=== PATIENT | female | born 1960 | race Caucasian/White ===

== ENCOUNTER 2018-07-25 02:27 | Emergency (ER) | payer MEDICARE, BC ==
[2016-10-16 12:45] VITALS: Wt 77.1 kg
--- NOTE | 2018-07-25 02:37 | ER Report ---
History and Physical Time Seen By MD: 02:37 HPI/ROS CHIEF COMPLAINT: Sudden onset of shortness breath HISTORY OF PRESENT ILLNESS: This is a 58 rolled female. Tonight she started becoming very short of breath. This started about 1-2 hours prior to coming to the hospital. She also has developed a cough tonight. Has chest tightness. No fevers. Nothing seems to make the breathing with the chest tightness worse or better. Found to be hypoxic in triage. Does have a history of DVT in the past but no history of pulmonary embolism. Also history of pneumonia with an abscess a few years ago treated successfully with antibiotics. As had one other episode of pneumonia treated by her outpatient provider within the last couple of years. She does smoke and has COPD. She wear oxygen intermittently at 2 liters by nasal canula at home. Denies any radiating pain to neck, back or arms. She has been a little nauseated, but not now. She and her also tell me that they have been under a lot of stress the last couple of days because someone poisoned their dog and wondered if the problem could be due to the increased stress. No sick contacts. Allergies: Coded Allergies: No Known Drug Allergies (Verified , 07/25/18) Home Meds Reported Medications Vitamin E Acetate (VITAMIN E) 400 Unit Capsule, 400 INTLU PO TID, CAPSULE 10/15/16 Diazepam (DIAZEPAM) 10 Mg Tablet, 0.5 TAB PO DAILY@1200, TAB 10/15/16 Diazepam (DIAZEPAM) 10 Mg Tablet, 10 MG PO BID, #15 TAB 10/15/16 Buspirone Hcl (BUSPIRONE HCL) 15 Mg Tablet, 1 TAB PO TID, #90 10/15/16 Paroxetine Hcl (PAROXETINE HCL) 40 Mg Tablet, 1 TAB PO HS, #30 10/15/16 Omeprazole (OMEPRAZOLE) 40 Mg Capsule.dr, 1 CAP PO QDAY, #30 10/15/16 Ferrous Sulfate (Ferrous Sulfate) 325 Mg Tab, 325 MG PO TIDAC, 0 Refills 02/21/10 Trazodone Hcl (Desyrel) 100 Mg Tablet, 100 MG PO HS, 0 Refills 02/21/10 Discontinued Scripts Levofloxacin 750 Mg Tab (LEVOFLOXACIN 750 MG TAB) 750 Mg Tablet, 750 MG PO DAILY for 7 Days, #7 TAB Prov:JOCELIN MIRANDA MD 10/19/16 Reviewed Nurses Notes: Yes Hx Smoking: Yes Smoking Status: Current: Every Day Smoker, Heavy Tobacco Smoker Exposure to Second Hand Smoke?: Yes Hx Substance Use Disorder: No Hx Alcohol Use: No (QUIT 15YRS AGO) Constitutional Physical Exam General Appearance: The patient is alert. Acute distress because of her shortness of breath. Eyes: Pupils are equal, round. No pallor, injection or icterus. ENT: Mucous membranes are moist. Normal oral mucosa. Posterior oropharynx is normal. Normal tympanic membranes and canals. Neck: Supple and non tender. Respiratory: Lungs diminished throughout, she does have some rhonchi throughout, but no rales. Some expiratory wheezes. There are no retractions or accessory muscle use. Cardiovascular: Regular rate and rhythm with occasional PVC on rhythm strip. No murmurs, gallops or rubs. Normal capillary refill. No edema. Gastrointestinal: Abdomen is soft and non tender. Normal active bowel sounds. Neurological: Alert and oriented x3. Skin: Warm and diaphoretic. No rashes. DIFFERENTIAL DIAGNOSIS: After history and physical exam, differential diagnosis was considered for shortness of breath including but not limited to pulmonary infectious process, COPD/asthma, pulmonary embolus and cardiac causes. Medical Decision Making Data Points Laboratory Hematology Test 07/25/18 02:38 07/25/18 02:51 07/25/18 05:40 Red Blood Count 5.34 M/uL (4.17-5.56) Mean Corpuscular Volume 91.5 fL (80.0-96.0) Mean Corpuscular Hemoglobin 30.7 pg (26.0-33.0) Mean Corpuscular Hemoglobin Concent 33.6 g/dL (32.0-36.0) Red Cell Distribution Width 13.5 % (11.5-14.5) Mean Platelet Volume 8.0 fL (7.2-11.1) Neutrophils (%) (Auto) 63.8 % (39.4-72.5) Lymphocytes (%) (Auto) 25.3 % (17.6-49.6) Monocytes (%) (Auto) 7.7 % (4.1-12.4) Eosinophils (%) (Auto) 2.5 % (0.4-6.7) Basophils (%) (Auto) 0.7 % (0.3-1.4) Nucleated RBC Relative Count (auto) 0.1 /100WBC Neutrophils # (Auto) 4.8 K/uL (2.0-7.4) Lymphocytes # (Auto) 1.9 K/uL (1.3-3.6) Monocytes # (Auto) 0.6 K/uL (0.3-1.0) Eosinophils # (Auto) 0.2 K/uL (0.0-0.5) Basophils # (Auto) 0.1 K/uL (0.0-0.1) Nucleated RBC Absolute Count (auto) 0.01 K/uL D-Dimer Quantitative (PE/DVT) 0.28 ug/ml (0-0.50) Sodium Level 139 mmol/L (137-145) Potassium Level 3.6 mmol/L (3.5-5.0) Chloride Level 99 mmol/L (98-107) Carbon Dioxide Level 34 mmol/L (22-31) Blood Urea Nitrogen 8 mg/dl (7-18) Creatinine 0.70 mg/dl (0.52-1.04) Glomerular Filtration Rate Calc > 60.0 Random Glucose 132 mg/dl (75-110) Lactate 1.5 mmol/L (0.7-2.1) Calcium Level 8.9 mg/dl (8.4-10.2) Total Bilirubin < 0.1 mg/dl (0.2-1.3) Aspartate Amino Transf (AST/SGOT) 18 U/L (0-35) Alanine Aminotransferase (ALT/SGPT) 26 U/L (0-56) Alkaline Phosphatase 94 U/L (0-126) Total Protein 6.9 g/dl (6.3-8.2) Albumin 3.9 g/dl (3.5-5.0) Influenza Virus Type A (PCR) Negative (NEGATIVE) Influenza Virus Type B (PCR) Negative (NEGATIVE) Troponin I < 0.012 ng/ml Chemistry Test 07/25/18 02:38 07/25/18 02:51 07/25/18 05:40 White Blood Count 7.5 k/uL (4.5-11.0) Red Blood Count 5.34 M/uL (4.17-5.56) Hemoglobin 16.4 g/dL (12.0-16.0) Hematocrit 48.8 % (34.0-47.0) Mean Corpuscular Volume 91.5 fL (80.0-96.0) Mean Corpuscular Hemoglobin 30.7 pg (26.0-33.0) Mean Corpuscular Hemoglobin Concent 33.6 g/dL (32.0-36.0) Red Cell Distribution Width 13.5 % (11.5-14.5) Platelet Count 331 K/uL (150-450) Mean Platelet Volume 8.0 fL (7.2-11.1) Neutrophils (%) (Auto) 63.8 % (39.4-72.5) Lymphocytes (%) (Auto) 25.3 % (17.6-49.6) Monocytes (%) (Auto) 7.7 % (4.1-12.4) Eosinophils (%) (Auto) 2.5 % (0.4-6.7) Basophils (%) (Auto) 0.7 % (0.3-1.4) Nucleated RBC Relative Count (auto) 0.1 /100WBC Neutrophils # (Auto) 4.8 K/uL (2.0-7.4) Lymphocytes # (Auto) 1.9 K/uL (1.3-3.6) Monocytes # (Auto) 0.6 K/uL (0.3-1.0) Eosinophils # (Auto) 0.2 K/uL (0.0-0.5) Basophils # (Auto) 0.1 K/uL (0.0-0.1) Nucleated RBC Absolute Count (auto) 0.01 K/uL D-Dimer Quantitative (PE/DVT) 0.28 ug/ml (0-0.50) Glomerular Filtration Rate Calc > 60.0 Lactate 1.5 mmol/L (0.7-2.1) Calcium Level 8.9 mg/dl (8.4-10.2) Total Bilirubin < 0.1 mg/dl (0.2-1.3) Aspartate Amino Transf (AST/SGOT) 18 U/L (0-35) Alanine Aminotransferase (ALT/SGPT) 26 U/L (0-56) Alkaline Phosphatase 94 U/L (0-126) Total Protein 6.9 g/dl (6.3-8.2) Albumin 3.9 g/dl (3.5-5.0) Influenza Virus Type A (PCR) Negative (NEGATIVE) Influenza Virus Type B (PCR) Negative (NEGATIVE) Troponin I < 0.012 ng/ml Coagulation Test 07/25/18 02:38 D-Dimer Quantitative (PE/DVT) 0.28 ug/ml Microbiology Microbiology Date/Time Source Procedure Growth Status 07/25/18 03:56 Blood Blood Culture - Final NO GROWTH AFTER 5 DAYS IN BOTH THE AE... Complete 07/25/18 02:50 Blood Blood Culture - Final NO GROWTH AFTER 5 DAYS IN BOTH THE AE... Complete EKG/Imaging EKG Interpretation 12 lead EKG: at 02:48 hours Rhythm: normal sinus rhythm, rate 81 [place]: normal QRS: normal ST segments: normal 12 lead EKG: At 05:20 hours Rhythm: Sinus tachycardia, rate 124 Otherwise unchanged Monitor Interpretation: Other (Initially normal sinus rhythm with rare PVCs. Later) Imaging CHEST: Indication: Cough and dyspnea. Technique: Frontal and lateral views were obtained. Comparison: 10/15/2016 Skeletal and soft tissue structures: There is mild degenerative disc disease in the thoracic spine, without significant change. No acute skeletal deformity is identified. Heart and mediastinum: Within normal limits. Lung hughes: Well-expanded. No acute process is clearly identified. There is minimal linear scarring at the right base. Pleural spaces: No evidence of effusion or pneumothorax. Impression: No acute process is clearly identified. Report Dictated By: Jason Hewitt MD at 07/25/2018 3:[address] CTA CHEST W & W/O CON HISTORY: Shortness of breath and cough. Hypoxia. COMPARISON: 10/15/2016 and studies dating to 10/11/2006. TECHNIQUE: Pulmonary embolus protocol - Thin-slice axial imaging of the chest was performed during maximal pulmonary arterial opacification with intravenous nonionic iodinated contrast. 3D coronal slab MIPs and 2D reconstructions in the coronal and sagittal planes were performed to aid in pulmonary embolus detection. Childbirth And Infant Care Teacher images have been stored on PACS. One of the following dose optimization techniques was utilized in the performance of this exam: Automated exposure control; adjustment of the mA and/or kV according to the patient's size; or use of an iterative reconstruction technique. Specific details can be referenced in the facility's radiology CT exam operational policy. CONTRAST: 75 mL of IV Isovue-370. FINDINGS: Pulmonary arteries: There is adequate opacification of the pulmonary arteries to the segmental branches. There are no filling defects in the visible pulmonary arteries. Pulmonary arteries are normal in caliber. Thoracic inlet: Normal. Aorta: No aneurysm or dissection. There is mild atherosclerosis of the aorta. Heart / Pericardium: The heart is normal. There is no ventricular septal deviation. There is no pericardial effusion. There is no coronary artery calcification. Mediastinum / Naty: 1.3 cm short axis diameter right pretracheal node (image 31 series 4), unchanged from October 2016, compatible with a benign process. There are other smaller mediastinal and hilar nodes. Lungs / Pleura: No pleural effusion. There are patchy alveolar opacities in the right upper and right middle lobes and in the right greater than left lower lobes. Opacities are somewhat confluent in the right lower lobe. No pneumothorax. There is bronchial thickening, greatest in the right lower lobe. Upper abdomen: There is a bilobed cyst in the left lobe of the liver, unchanged. There is a moderate size hiatal hernia. Musculoskeletal/vertebra/body wall: There is mild degenerative change of the spine. There are 1 mm anterolistheses of T1 on T2 and of T2 on T3. IMPRESSION: 1. No pulmonary embolism. 2. Bilateral infiltrates, right greater than left, and greatest in the right lower lobe. Findings are compatible with pneumonia. 3. Bronchial thickening, greatest in the right lower lobe, compatible with inflammation/infection. 4. Moderate size hiatal hernia. Report Dictated By: Pooja Shannon at 07/25/2018 4:40 AM ED Course/Re-evaluation Clinical Indication for ER IV: Hydration, IV Access ED Course With the initial evaluation, the concern was for infectious etiology combined with possible COPD exacerbation. She has oxygen saturations of 69% on room air on arrival, improved to 92% on a simple oxymask at 10 liters. IV started and blood work obtained including Lactate and blood cultures. DuoNeb treatment helped her breathing. Troponin and EKG included because of her risk factors. Troponin was undetectable. D-dimer negative. White count normal with H/H elevated likely due to smoking, normal platelets. Metabolic panel normal other than CO2 retention. She received a liter or normal saline. We were able to wean her oxygen down to 3-4 liters by nasal canula. Chest x-ray was done and did not show any edema, effusions, infiltrates or other acute disease. Influenza tests were negative. Because of the negative workup and significant hypoxia, the patient had a CTA chest, which was negative for any acute disease, specifically no pulmonary embolism or infiltrates. The thinking at this time was that this could be a viral upper respiratory infection with COPD exacerbation, although concern for the level of hypoxia we saw. After the CT scan, she started to have more chest tightness, and started complaining of some pain into her neck on the left side. She was becoming more short of breath again. Another DuoNeb treatment did not provide any improvement. We gave a dose of Solu-Medrol at this time as well. Her security monitor did show a lot of noise, but as we were monitoring her, she would have some short runs of distinct wide complex tachycardia. These were usually short, none more than about 20-30 seconds in length and then would go back to a sinus rhythm. She had a couple of these episodes while we were at the bedside, and she would have significantly more chest tightness and shortness of breath during these. Blood pressures seemed to be lower now, with systolics in the 90s and diastolics in the 50-70 range. At this time, we gave Aspirin 324mg oral dose, and a 150mg loading dose of Amiodarone and contacted the alligator trapper at [facility]. We attempted to catch the runs of ventricular tachycardia on a 12-lead EKG but were unsuccessful but were able to print out rhythm strips showing this arrhythmia. I spoke with Dr. Truong, the hospitalist at [facility], and Dr. Moore, the alligator trapper at [facility]. They accepted the patient for transport there. We are starting a 1mg/min Amiodarone drip to follow the 150mg loading dose. I have spoken to the patient and her several times regarding our concerns, explaining the dangers surrounding the heart arrhythmias we have been seeing and the medications we are using as well as need for further cardiology evaluation. With the addition of the Amiodarone drip, we are no longer seeing the wide complex tachycardia, she is having less shortness of breath and chest pain. Decision to Disposition Date: Jul 25, 2018 Decision to Disposition Time: 05:55 Transfer Facility Patient was transferred to [facility] [place] ambulance. The transfer was emergent, and was required because the capabilities of the receiving hospital. Consent for transfer was obtained from the patient. See EMTALA for transfer orders. Depart Departure Latest Vital Signs Impression: Primary Impression: Ventricular tachycardia Additional Impressions: Chest pain Hypoxia Condition: Condition Unchanged Disposition: XFER TO [facility] Problem Qualifiers Additional Impressions: Chest pain Chest pain type: unspecified Qualified Codes: R07.9 - Chest pain, unspecified PRETTY DEL REAL MD Jul 25, 2018 02:37
[2018-07-25] MEDS ORDERED: ALBUTEROL/IPRATROPIUM 3 ML NEB NEB ONE ×2 (02:55→04:35)
[2018-07-25 02:58] LABS: PLATELET COUNT, AUTOMATED 331 K/uL (150-450)
[2018-07-25] MEDS ORDERED: NS(*) 0.9% 1000 ML BAG 1,000 ML IV ONE ×2 (03:00→05:50)
--- NOTE | 2018-07-25 03:09 | EKG ---
FACILITY: [facility] [place] PATIENT NAME: TRISTIN ROJAS : [id number] MR: [id number] V: [id number] EXAM DATE: ORDERING PHYSICIAN: PRETTY DEL REAL TECHNOLOGIST: ROLAND Test Reason : CHEST PAIN Blood Pressure : / mmHG Vent. Rate : 081 BPM Atrial Rate : 081 BPM P-R Int : 148 ms QRS Dur : 080 ms QT Int : 384 ms P-R-T Axes : 056 078 055 degrees QTc Int : 446 ms Sinus rhythm Decreased R wave progression anterior leads Artifact in several leads - repeat if needed When compared with ECG of 15-OCT-2016 10:30, No significant change was found Confirmed by SAMY MIRANDA ([id number]) on 07/25/2018 5:32:52 AM Referred By: Confirmed By:SAMY MIRANDA
--- NOTE | 2018-07-25 03:39 | RADIOLOGY IMAGING REPORT ---
FACILITY: [facility] PATIENT NAME: Alize Carlson : 1960 MR: [id number] V: [id number] EXAM DATE: ORDERING PHYSICIAN: PRETTY DEL REAL TECHNOLOGIST: Location: [facility] [place] Patient: Alize Carlson : 1960 Visit/Account:[id number] Date of Sevice: 07/25/2018 CHEST: Indication: Cough and dyspnea. Technique: Frontal and lateral views were obtained. Comparison: 10/15/2016 Skeletal and soft tissue structures: There is mild degenerative disc disease in the thoracic spine, w ithout significant change. No acute skeletal deformity is identified. Heart and mediastinum: Within normal limits. Lung hughes: Well-expanded. No acute process is clearly identified. There is minimal linear scarring at the right base. Pleural spaces: No evidence of effusion or pneumothorax. Impression: No acute process is clearly identified. Report Dictated By: Jason Hewitt MD at 07/25/2018 3:31 AM Report E-Signed By: Jason Hewitt MD at 07/25/2018 3:34 AM WSN:[id number]
[2018-07-25] MEDS ORDERED: NS(*) 0.9% 50 ML BAG 50 ML ONE (04:05)
[2018-07-25] MEDS ORDERED: IOPAMIDOL 76% 150 ML INFUS BTL 150 ML ONE (04:05)
[2018-07-25] MEDS ORDERED: methylPREDNIS SUCC 125 MG/2ML IVP ONE (04:35)
--- NOTE | 2018-07-25 04:56 | RADIOLOGY IMAGING REPORT ---
FACILITY: [facility] PATIENT NAME: Alize Carlson : 1960 MR: [id number] V: [id number] EXAM DATE: ORDERING PHYSICIAN: PRETTY DEL REAL TECHNOLOGIST: Location: [facility] [place] Patient: Alize Carlson : 1960 Visit/Account:[id number] Date of Sevice: 07/25/2018 CT CTA CHEST W & W/O CON HISTORY: Shortness of breath and cough. Hypoxia. COMPARISON: 10/15/2016 and studies dating to 10/11/2006. TECHNIQUE: Pulmonary embolus protocol - Thin-slice axial imaging of the chest was performed during ma ximal pulmonary arterial opacification with intravenous nonionic iodinated contrast. 3D coronal slab MIPs and 2D reconstructions in the coronal and sagittal planes were performed to aid in pulmonary emb olus detection. Family Support Specialist images have been stored on PACS. One of the following dose optimization techniques was utilized in the performance of this exam: Autom ated exposure control; adjustment of the mA and/or kV according to the patient's size; or use of an i terative reconstruction technique. Specific details can be referenced in the facility's radiology CT exam operational policy. CONTRAST: 75 mL of IV Isovue-370. FINDINGS: Pulmonary arteries: There is adequate opacification of the pulmonary arteries to the segmental branch es. There are no filling defects in the visible pulmonary arteries. Pulmonary arteries are normal in caliber. Thoracic inlet: Normal. Aorta: No aneurysm or dissection. There is mild atherosclerosis of the aorta. Heart / Pericardium: The heart is normal. There is no ventricular septal deviation. There is no peric ardial effusion. There is no coronary artery calcification. Mediastinum / Naty: 1.3 cm short axis diameter right pretracheal node (image 31 series 4), unchanged from October 2016, compatible with a benign process. There are other smaller mediastinal and hilar nodes . Lungs / Pleura: No pleural effusion. There are patchy alveolar opacities in the right upper and right middle lobes and in the right greater than left lower lobes. Opacities are somewhat confluent in the right lower lobe. No pneumothorax. There is bronchial thickening, greatest in the right lower lobe. Upper abdomen: There is a bilobed cyst in the left lobe of the liver, unchanged. There is a moderate size hiatal hernia. Musculoskeletal/vertebra/body wall: There is mild degenerative change of the spine. There are 1 mm an terolistheses of T1 on T2 and of T2 on T3. IMPRESSION: 1. No pulmonary embolism. 2. Bilateral infiltrates, right greater than left, and greatest in the right lower lobe. Findings are compatible with pneumonia. 3. Bronchial thickening, greatest in the right lower lobe, compatible with inflammation/infection. 4. Moderate size hiatal hernia. Report Dictated By: Pooja Shannon at 07/25/2018 4:40 AM Report E-Signed By: Pooja Shannon at 07/25/2018 4:51 AM WSN:[id number]
[2018-07-25] MEDS ORDERED: LORazepam 2 MG/ML VIAL IVP ONE (05:05)
[2018-07-25] MEDS ORDERED: ASPIRIN 81 MG CHEW PO ONE (05:10)
[2018-07-25] MEDS ORDERED: ONDANSETRON 4 MG/2 ML VIAL IVP ONE (05:10)
[2018-07-25] MEDS ORDERED: AMIODARONE(*) 150 MG/3 ML INJ 150 MG in DEXTROSE 5%(*) 100 ML BAG 100 ML IVPB ONE (05:15)
[2018-07-25] MEDS ORDERED: AMIODARONE 150 MG/3 ML INJ ONE (05:21)
[2018-07-25] MEDS ORDERED: AMIODARONE HCL 450 MG/9 ML 360 MG in D5W VISIV(*) 250 ML 242.8 ML IVPB ONE (05:50)
--- NOTE | 2018-07-25 06:28 | EKG ---
FACILITY: [facility] [place] PATIENT NAME: TRISTIN ROJAS : [id number] MR: [id number] V: [id number] EXAM DATE: ORDERING PHYSICIAN: PRETTY DEL REAL TECHNOLOGIST: ROLAND Test Reason : CHEST PAIN Blood Pressure : / mmHG Vent. Rate : 124 BPM Atrial Rate : 124 BPM P-R Int : 142 ms QRS Dur : 080 ms QT Int : 300 ms P-R-T Axes : 062 090 064 degrees QTc Int : 431 ms Sinus tachycardia Otherwise normal ECG When compared with ECG of 25-JUL-2018 02:48, Vent. rate has increased BY 43 BPM Confirmed by Carson Baltazar ([id number]) on 07/25/2018 6:58:43 PM Referred By: Confirmed By:Carson Kline
--- NOTE | 2018-07-25 06:28 | EKG ---
FACILITY: [facility] PATIENT NAME: TRISTIN ROJAS : [id number] MR: [id number] V: [id number] EXAM DATE: ORDERING PHYSICIAN: PRETTY DEL REAL TECHNOLOGIST: ROLAND Test Reason : CHESST PAIN Blood Pressure : / mmHG Vent. Rate : 123 BPM Atrial Rate : 123 BPM P-R Int : 152 ms QRS Dur : 088 ms QT Int : 304 ms P-R-T Axes : 057 085 052 degrees QTc Int : 435 ms Sinus tachycardia Otherwise normal ECG When compared with ECG of 25-JUL-2018 05:20, No significant change was found Confirmed by Carson Baltazar ([id number]) on 07/25/2018 6:58:55 PM Referred By: Confirmed By:Carson Kline
[2018-07-25 07:00] VITALS: BP 110/68
== END 2018-07-25 07:10 | disposition short-term general hospital (02) ==
LOC: ER 02:37
DX: I47.2 Ventricular tachycardia (principal); R07.9 Chest pain, unspecified; R09.02 Hypoxemia; F17.210 Nicotine dependence, cigarettes, uncomplicated
CPT/HCPCS: 36415; 71046; 71275; 83605; 84484; 85025; 85379; 87040; 87502; 93005; 94640; 96361; 96365; 96375; 99285; A9270; J0282; J2060; J2405; J2930; J7030; J7050; J7060; J7620; Q9967; 82040; 82247; 82310; 82374; 82435; 82565; 82947; 84075; 84132; 84155; 84295; 84450; 84460; 84520

== ENCOUNTER → 2018-07-25 | Outpatient (CLI) | payer MEDICARE, BC ==
[2016-10-16 12:45] VITALS: BMI 26.8
[~2018-07-25] MED LIST: ALP5 PO; ALPR-429 PO; ARIP5TAB28 PO; BENZ1 PO; BUS5 PO; BUSP15TA69 PO; CLON-303 PO; DEXT10TA PO; DIAZ-311 PO; ENO100I SC; FER325 PO; LEVO750T27 PO; METF-409 PO; METF-420 PO; METH500T PO; OMEP40CA48 PO; PARO-243 PO; PARO40TA88 PO; PER PO; RANI150T PO; ROS10 PO; TRAZ-133 PO; VEN75 PO; VENL75CA58 PO; VITA-200 PO; WAR5 PO; ZIPR40CA13 PO; ZOLP-350 PO; [UNRECOGNIZED DRUG - CODE] PO; [UNRECOGNIZED DRUG - CODE] TD
== END ==
LOC: AMB 07:06
PROVIDERS: ATTEND Nurse Practitioner
DX: I47.0 Re-entry ventricular arrhythmia (principal); R09.02 Hypoxemia; R47.81 Slurred speech
CPT/HCPCS: A0425; A0426

== ENCOUNTER → 2018-09-22 | Outpatient (CLI) | payer MEDICARE, BC ==
[2016-10-16 12:45] VITALS: BMI 26.8
== END ==
LOC: RESP 01:20
PROVIDERS: ATTEND Physician Assistant
DX: J44.9 Chronic obstructive pulmonary disease, unspecified (principal)
CPT/HCPCS: 94060; 94726; 94729

== ENCOUNTER → 2018-11-09 | Outpatient (CLI) | payer MEDICARE, BC ==
[2016-10-16 12:45] VITALS: BMI 26.8
--- NOTE | 2018-11-09 18:19 | RADIOLOGY IMAGING REPORT ---
FACILITY: [facility] PATIENT NAME: Alize Carlson : 1960 MR: [id number] V: [id number] EXAM DATE: ORDERING PHYSICIAN: DAMIAN HARO TECHNOLOGIST: Location: [facility] Patient: Alize Carlson : 1960 Visit/Account:[id number] Date of Sevice: 11/09/2018 CHEST PA LAT COMPARISONS: 2 view chest dated July 25, 2018 ADDITIONAL PERTINENT HISTORY: COPD exacerbation. FINDINGS: Cardiomediastinal silhouette: Negative. Pulmonary vasculature: Negative. Lung hughes: Patchy region of infiltrate involving the right lung base. Mild scarring at the left l ashish base. Pleural spaces: Small right-sided pleural effusion. Osseous structures: Mild scoliotic curvature convex to the left centered along the lower thoracic sp ine. Surrounding soft tissues: Patient status post cholecystectomy. IMPRESSION: 1. Findings concerning for a right lower lobe infiltrate. Report Dictated By: Damian Carroll MD at 11/09/2018 6:08 PM Report E-Signed By: Damian Carroll MD at 11/09/2018 6:10 PM WSN:[id number]
== END ==
LOC: RAD 16:48
PROVIDERS: ATTEND Family Medicine
DX: J44.1 Chronic obstructive pulmonary disease with (acute) exacerbation (principal)
CPT/HCPCS: 71046